=== PATIENT | female | born 1970 | race Caucasian/White ===

== ENCOUNTER 2020-03-15 10:14 | Emergency (ER) | payer OTHER, SELFPAY ==
--- NOTE | ~2020-03-15 | XR_ITS ---
EXAMINATION: XR ankle RT min 3V INDICATION: Right ankle pain, initial encounter TECHNIQUE: Four views of the right ankle are obtained. COMPARISON: None available FINDINGS: There is soft tissue swelling of ankle, particularly at its lateral aspect. There is a hete rotopic ossification projecting distal to the lateral malleolus which appears to be well-corticated. Ankle alignment is normal. A plantar calcaneal enthesophyte is noted. IMPRESSION: 1. Lateral ankle soft tissue swelling. Heterotopic ossification projecting to the lateral malleolus i s well corticated and could reflect prior injury however acute avulsion is also a consideration given the adjacent soft tissue swelling. Reviewed, dictated and finalized at location B. IMPRESSION: 1. Lateral ankle soft tissue swelling. Heterotopic ossification projecting to t he lateral malleolus is well corticated and could reflect prior injury however acute avulsion is also a consideration given the adjacent soft tissue swelling.
--- NOTE | 2020-03-15 10:23 | ED.LOWEXIN ---
HPI - Extremity Injury (Lower) General Chief Complaint: Extremity Injury, Lower Stated Complaint: Extremity injury, lower Time Seen by Provider: 03/15/20 10:38 Source: patient and RN notes reviewed Mode of arrival: ambulatory Limitations: no limitations History of Present Illness HPI Narrative: 49-year-old female presents with concern for right ankle injury. Reports yesterday while walking she rolled her ankle. Reports swelling, pain, reports she is unable to bear weight on the ankle. She denies any foot, toe pain. Denies any knee pain. MD complaint: ankle injury Related Data Home Medications Medication Instructions Recorded Confirmed atorvastatin 20 mg PO DAILY 03/15/20 03/15/20 blood-glucose sensor [Dexcom G6 03/15/20 03/15/20 Sensor] blood-glucose transmitter [Dexcom 03/15/20 03/15/20 G6 Transmitter] gabapentin 300 mg PO DAILY 03/15/20 03/15/20 gabapentin 400 mg PO DAILY 03/15/20 03/15/20 insulin lispro [Humalog KwikPen unit SUBCUT DAILY 03/15/20 Insulin] [id number] [Creon] 1 cap PO DAILY 03/15/20 03/15/20 omeprazole 20 mg PO DAILY 03/15/20 03/15/20 pantoprazole 40 mg PO DAILY 03/15/20 03/15/20 sertraline 100 mg PO DAILY 03/15/20 03/15/20 Allergies Allergy/AdvReac Type Severity Reaction Status Date / Time Penicillins Allergy Unknown Unknown Verified 03/15/20 10:33 Review of Systems Review of Systems: Narrative: CONSTITUTIONAL: Denies malaise, chills, sweats, or fever. CARDIOVASCULAR: Denies chest pain, palpitations, or edema. RESPIRATORY: Denies cough or dyspnea. SKIN: Reports right lateral ankle swelling, bruising MUSCULOSKELETAL: Reports right ankle pain NEUROLOGIC: Denies numbness, weakness. All systems reviewed & are unremarkable except as noted in HPI and below PMFSH Past Medical History Medical History (Updated 03/15/20 @ 11:04 by Florence Cordero NP) Cirrhosis Noted on CT in August 2018. Denies history of varices. Diabetes mellitus, new onset GI bleed GI bleed in August 2018. Endoscopy done at [facility] reportedly showed no source for bleeding however she was told she had a hiatal hernia. Hiatal hernia with GERD History of alcoholism Patient has abstained from alcohol since August 2018. Pancreatitis In August 2018. CAT scan at that time showed concerns for possible hemorrhagic pancreatitis and necrosis, and she was transferred to [facility] for further evaluation. She has not had a recurrence since that time. Surgical History Surgical History (Updated 07/17/19 @ 19:08 by Fara Neumann PA-C) History of wisdom tooth extraction Status post breast augmentation Social History Social History (Updated 07/17/19 @ 19:09 by Fara Neumann PA-C) Social History: The patient lives in [place]. She is a beautician. She has a history of alcoholism, but has abstained since August 2018. She is a former smoker and quit at the time she stopped drinking alcohol. Occasional marijuana use. She designates her mother, Charley Bo, as her surrogate decision-maker and she wishes to be full code. Spiritual care concerns: No Comments At time of signature, agree with nursing past medical, surgical, social and family history. There is no relevant family history pertinent to the presenting complaint Exam Narrative: Exam Narrative: GENERAL: Well-appearing, well-nourished, and in no acute distress. HEAD: Normocephalic, atraumatic. EYES: PERRLA, conjunctivae clear NECK: Supple. CHEST: Speaks in full sentences. No respiratory distress. HEART: Regular rate and rhythm. Normal and equal peripheral pulses. EXTREMITIES: Right ankle, digits of right foot has normal strength and sensation, digits have normal range of motion, limited range of motion the ankle due to pain. Moderate lateral edema and ecchymosis. 5/5 strength with ankle and digit flexion and extension. Normal sensation with sensitivity to light touch and pain. No
[2020-03-15 10:29] VITALS: BP 118/81; PULSE 68; RESP 16; TEMP 36.6; O2SAT 97
== END 2020-03-15 11:31 | disposition home or self-care (01) ==
PROVIDERS: Emergency Provider Nurse Practitioner; PCP Family Medicine
DX: S99.911A Unspecified injury of right ankle, initial encounter (principal); X50.9XXA Other and unspecified overexertion or strenuous movements or postures, initial encounter; Z87.891 Personal history of nicotine dependence; K74.60 Unspecified cirrhosis of liver; E11.9 Type 2 diabetes mellitus without complications; K21.9 Gastro-esophageal reflux disease without esophagitis; Z79.4 Long term (current) use of insulin
CPT/HCPCS: 29515; 73610; 99213; 99214; G0463

== ENCOUNTER 2021-07-04 13:47 | Emergency (ER) | payer OTHER, SELFPAY ==
--- NOTE | ~2021-07-04 | XR_ITS ---
EXAMINATION: XR chest 2V DATE: 07/04/2021 15:12 INDICATION: Palpitations. TECHNIQUE: Frontal and lateral views of the chest were obtained. COMPARISON: Chest single view 07/18/2019, CT abdomen and pelvis 08/26/2018 FINDINGS: A calcified right lung nodule is consistent with old granulomatous disease. No pleural effu tawnya or pneumothorax. The heart size is normal. There are breast implants. IMPRESSION: 1. No acute cardiopulmonary disease. Reviewed, dictated and finalized at location D. CTOR EXPORT
[2021-07-04 14:06] VITALS: BP 137/100; PULSE 111; RESP 20; TEMP 37.3; O2SAT 100
[2021-07-04 14:40] LABS: Glucose Point of Care 220 mg/dl (65-105)
--- NOTE | 2021-07-04 14:54 | ECG_ITS ---
Measurements Intervals [place] Rate: 103 P: 62 TN: 150 QRS: 15 QRSD: 84 T: 62 QT: 345 QTc: 453 Interpretive Statements SINUS TACHYCARDIA POSSIBLE LEFT ATRIAL ENLARGEMENT ST ABNORMALITY IN ANTEROLAT/INF LEADS- CONSIDER ISCHEMIA ABNORMAL ECG Electronically Signed On 07-04-2021 15:36:30 [facility] by Kevin Palma D.O.
[2021-07-04 15:41] LABS: Anion Gap 12 mmol/L (8-16); Blood Urea Nitrogen 17 mg/dL (7-17); Calcium 10.1 mg/dL (8.4-10.2); Carbon Dioxide 21 mmol/L (22-30); Chloride 106 mmol/L (98-107); Estimated CRCL calculation 114 ml/min; Estimated Glomerular Filt Rate > 60; Glucose 190 mg/dL (65-110); Potassium 3.1 mmol/L (3.4-5.0); Sodium 139 mmol/L (137-145)
[2021-07-04 15:44] LABS: Basophils Percent Auto 0.4 % (0.2-1.2); Eosinophils Percent Auto 0.4 % (0-4.4); Hematocrit 42.7 % (37.0-47.0); Hemoglobin 15.5 g/dL (12.0-15.0); Immature Granulocyte Absolute 0.03 K/mm3 (0.00-0.031); Immature Granulocyte Percent A 0.3 % (0-0.5); Lymphocytes Absolute Auto 1.56 K/mm3 (0.9-3.2); Lymphocytes Percent Auto 15.4 % (18.3-44.2); Mean Corpuscular HGB Conc 36.3 g/dl (32-36); Mean Corpuscular Hemoglobin 32.9 pg (26-34); Mean Corpuscular Volume 90.7 fl (80-100); Mean Platelet Volume 9.6 fl (7.4-10.4); Monocytes Absolute Auto 0.7 K/mm3 (0.1-0.6); Monocytes Percent Auto 7.1 % (2.6-8.5); Neutrophils Absolute Auto 7.7 K/mm3 (1.3-6.7); Neutrophils Percent Auto 76.4 % (45.5-73.1); Platelet Count Result 236 k/mm3 (150-375); Red Blood Count 4.71 M/mm3 (4.2-5.4); White Blood Count 10.1 K/mm3 (4.5-10.0)
[2021-07-04 15:53] LABS: Troponin I < 0.012 ng/mL (0.000-0.034)
[2021-07-04] MEDS: LORazepam (*CRX) 1 MG TABLET PO (15:53)
--- NOTE | 2021-07-04 15:58 | ED.ANXIETY ---
HPI - Anxiety General Chief Complaint: Anxiety Stated Complaint: PALPITATIONS/ANXIETY Time Seen by Provider: 07/04/21 14:56 Source: patient and family Mode of arrival: ambulatory Limitations: no limitations History of Present Illness HPI narrative: 50-year-old with a history of hypertension, insulin-dependent diabetic here with complaints of feeling anxious, depressed for past few days. She has been having intermittent chest pain associated with body tingling. She states that she recently lost her mother and feels down. She presently has no chest pain or shortness of breath. Patient states that she has not been taking her medication as she is supposed in the last few days. MD complaint: anxiety and heart racing Symptoms: chest pain Severity: mild Quality: intermittent Place: home Provoking factors: emotional stress and recent /illness of family member Relieving factors: nothing Related Data Home Medications Medication Instructions Recorded Confirmed blood-glucose sensor [Dexcom G6 03/15/20 04/24/21 Sensor] blood-glucose transmitter [Dexcom 03/15/20 04/24/21 G6 Transmitter] [id number] [Creon] 1 cap PO DAILY 03/15/20 04/24/21 atorvastatin 20 mg tablet 20 mg PO .QOD tablet 04/24/21 04/24/21 insulin lispro 100 unit/mL 10 unit SUBCUT TID ml 04/24/21 04/24/21 subcutaneous pen meloxicam 15 mg tablet 15 mg PO DAILY 04/24/21 04/24/21 Allergies Allergy/AdvReac Type Severity Reaction Status Date / Time Penicillins Allergy Unknown Unknown Verified 03/15/20 10:33 Review of Systems Review of Systems: All systems reviewed & are unremarkable except as noted in HPI and below Constitutional: Constitutional: Reports no additional constitutional complaints Eyes: Eyes: Reports no additional eye complaints ENT: Reports system reviewed and no additional complaints, except as documented Cardiovascular: Cardiovascular: Reports as per HPI Respiratory: Respiratory: Reports no additional respiratory complaints Gastrointestinal: Gastrointestinal: Reports no additional gastrointestinal complaints Musculoskeletal: Musculoskeletal: Reports no additional musculoskeletal complaints Integumentary/Breasts: Skin/Breast: Reports system reviewed and no additional complaints, except as docu Neurologic: Reports system reviewed and no additional complaints, except as documented Psychiatric: Psychiatric: Reports as per HPI and Reports anxiety Endocrine: Endocrine: Reports no additional endocrine complaints Hematologic/Lymphatic: Hematologic/Lymphatic: Reports no additional hematologic/lymphatic complaints PMFSH Past Medical History Medical History Allergies Anxiety Arthritis B12 deficiency Cirrhosis Noted on CT in August 2018. Denies history of varices. Depression with anxiety Diabetes mellitus, new onset Diabetes type I Fatigue Furuncle of axilla GERD (gastroesophageal reflux disease) GI bleed GI bleed in August 2018. Endoscopy done at [facility] reportedly showed no source for bleeding however she was told she had a hiatal hernia. Hiatal hernia with GERD History of alcoholism Patient has abstained from alcohol since August 2018. Lumbago Muscle cramp Pancreatitis In August 2018. CAT scan at that time showed concerns for possible hemorrhagic pancreatitis and necrosis, and she was transferred to [facility] for further evaluation. She has not had a recurrence since that time. Wellness examination Surgical History Surgical History History of wisdom tooth extraction Status post breast augmentation Family History Family History Father Diabetes mellitus Hypertension Social History Social History Social History: The patient lives in [facility]
[2021-07-04 16:15] VITALS: BP 140/81; PULSE 85; RESP 18; TEMP 37.1; O2SAT 99
== END 2021-07-04 16:16 | disposition home or self-care (01) ==
PROVIDERS: Emergency Medicine; Emergency Provider Family Medicine; PCP Nurse Practitioner Family
DX: R07.89 Other chest pain (principal); F41.8 Other specified anxiety disorders; I10 Essential (primary) hypertension; E10.9 Type 1 diabetes mellitus without complications; K74.60 Unspecified cirrhosis of liver; M19.90 Unspecified osteoarthritis, unspecified site; E53.8 Deficiency of other specified B group vitamins; K21.9 Gastro-esophageal reflux disease without esophagitis; K44.9 Diaphragmatic hernia without obstruction or gangrene; Z87.891 Personal history of nicotine dependence; R00.0 Tachycardia, unspecified; R94.31 Abnormal electrocardiogram [ECG] [EKG]; Z79.4 Long term (current) use of insulin
CPT/HCPCS: 36415; 71046; 80048; 82948; 84484; 85025; 93005; 99284; A9270

== ENCOUNTER 2021-07-18 07:24 | Outpatient (CLI) | payer OTHER, SELFPAY ==
--- NOTE | ~2021-07-18 | US_ITS ---
EXAMINATION: US abdomen limited DATE: 07/18/2021 07:54 INDICATION: Cirrhosis TECHNIQUE: Multiple grayscale and Doppler ultrasound images of the abdomen were obtained. COMPARISON: CT dated 08/26/2018 FINDINGS: The pancreatic head and body are normal in appearance. The pancreatic tail is not visualized. Liver demonstrate subtle heterogeneous echogenicity with geographic distribution consistent with previous n oted cirrhosis and heterogeneous mild hepatic steatosis. No significant liver surface nodularity appr eciated on the provided images. No liver lesion identified. No intrahepatic biliary duct dilation isaías pected. Portal venous flow was seen in the hepatopetal, normal direction and has normal Doppler wavef orm. Visualized proximal to mid inferior vena cava is normal. 7 mm echogenic and shadowing gallstone within the otherwise normal-appearing gallbladder. Sonographic Machado sign was reported as negative b y the director network development.Common bile duct measures 3 mm in diameter which is normal. IMPRESSION: 1. Subtle geographic pattern of heterogeneous hepatic echogenicity likely related to known cirrhosis and mild hepatic steatosis. 2. Cholelithiasis. Reviewed, dictated and finalized at location A. NE BIOLOGIST IMPRESSION: 1. Subtle geographic pattern of heterogeneous hepatic echogenicity likely relat ed to known cirrhosis and mild hepatic steatosis. 2. Cholelithiasis.
== END 2021-07-18 07:25 | disposition home or self-care (01) ==
PROVIDERS: PCP Nurse Practitioner Family; Visit Provider Nurse Practitioner Family
DX: K74.60 Unspecified cirrhosis of liver (principal); K80.20 Calculus of gallbladder without cholecystitis without obstruction
CPT/HCPCS: 76705

== ENCOUNTER 2021-08-08 09:19 | Outpatient (CLI) | payer OTHER, SELFPAY ==
--- NOTE | ~2021-08-08 | XR_ITS ---
XR lumbar spine min 4V DATE: 08/08/2021 09:58 INDICATION: Lumbago, left sciatica TECHNIQUE: AP, lateral, bilateral oblique views, coned lateral lumbosacral view COMPARISON: None FINDINGS: There is mild diffuse osteopenia. No fracture or bone destruction, spondylolysis or spondylolisthesis. There is moderate degenerative disease at L1-2, L2-3 and L3-4, minimal degenerative disc disease at L 4-5 and L5-S1. The lumbar pedicles are intact. The sacroiliac joints appear normal. IMPRESSION: Mild to moderate degenerative disc disease of the lumbar spine Reviewed, dictated and finalized at location B. STANT MEN'S LACROSSE COACH
== END 2021-08-08 09:20 | disposition home or self-care (01) ==
PROVIDERS: PCP Family Medicine; Visit Provider Family Medicine
DX: M54.42 Lumbago with sciatica, left side (principal); M47.817 Spondylosis without myelopathy or radiculopathy, lumbosacral region
CPT/HCPCS: 72110

== ENCOUNTER 2023-06-09 16:48 | Outpatient (CLI) | payer OTHER, SELFPAY ==
--- NOTE | ~2023-06-09 | US_ITS ---
EXAMINATION: US thyroid DATE: 06/09/2023 17:46 INDICATION: Other specified abnormal findings of blood chemistry. TECHNIQUE: Multiple ultrasound images of the thyroid were obtained. COMPARISON: None. FINDINGS: The right thyroid lobe measures 4.5 x 0.8 x 1.1 cm. The left thyroid lobe measures 3.6 x 0.7 x 1.2 c m. There is normal echotexture and echogenicity throughout the thyroid gland. No discrete nodules id entified. Normal vascular flow is present. IMPRESSION: 1. Normal thyroid. Reviewed, dictated and finalized at location E. STROPHE CLAIMS SUPERVISOR IMPRESSION: 1. Normal thyroid.
== END 2023-06-09 16:49 | disposition home or self-care (01) ==
PROVIDERS: PCP Nurse Practitioner Family; Visit Provider Nurse Practitioner Family
DX: R79.89 Other specified abnormal findings of blood chemistry (principal)
CPT/HCPCS: 76536